=== PATIENT | female | born 2000 | race Caucasian/White ===

== ENCOUNTER 2022-02-21 14:41 | Emergency (ER) | payer OTHER ==
[~2022-02-21] VITALS: Ht 160 cm; Wt 84.4 kg
[2022-02-21 14:56] VITALS: BP 100/57
[2022-02-21] MEDS ORDERED: PROM118S5 PO (16:53)
--- NOTE | 2022-02-21 17:06 | NUR ---
PT SEEN BY AARTI MANDUJANO. NO NURSING INERVENTIONS NEEDED
--- NOTE | 2022-02-21 17:07 | NUR ---
Patient discharged with v/s stable. Written and verbal after care instructions given and explained. Patient alert, oriented and verbalized understanding of instructions. Ambulatory with steady gait. All questions addressed prior to discharge. ID band removed. Patient advised to follow up with PMD. Rx of AMOXICILLIN, CETIRIZINE, IBUPROFEN given. Patient educated on indication of medication including possible reaction and side effects. Opportunity to ask questions provided and answered.
== END 2022-02-21 17:07 | disposition home or self-care (01) ==
LOC: MED 14:41
DX: R05.9 Cough, unspecified (principal); F17.210 Nicotine dependence, cigarettes, uncomplicated; Z71.6 Tobacco abuse counseling; Z79.899 Other long term (current) drug therapy; Z88.1 Allergy status to other antibiotic agents
CPT/HCPCS: 99283